=== PATIENT | female | born 1985 | race Asian ===

== ENCOUNTER → 2022-06-18 | Outpatient (CLI) | payer OTHER ==
[~2022-06-18] MED LIST: AMOX TR-K CLV1 EAC4 PO; CEFUROXIME500 MG PO; COLACE100 MG PO; CYANOCOBAL1000 MCG/1 INJ; IBU800 MG PO; NORCO 5-325 TA1 EACH PO; SPRINTEC 28 DA1 EACH PO; VITAMIN C1000 MG PO; VITAMIN D21250 MCG PO
[2022-06-18 14:24] LABS: HEMOGLOBIN 8.9 gm/dl (12.3-15.3); RED BLOOD COUNT 4.25 M/UL (4.00-5.10); WHITE BLOOD COUNT 19.2 K/UL (4.5-11.0)
[2022-06-18 14:50] LABS: BUN/CREATININE RATIO 9 (0-10)
== END ==
LOC: LAB 13:42
PROVIDERS: Nurse Practitioner Family
DX: R50.9 Fever, unspecified (principal)
CPT/HCPCS: 36415; 80053; 85025; 87040

== ENCOUNTER → 2022-06-18 | Outpatient (CLI) | payer OTHER | LOC: EXRD 12:56 | DX: R50.9 Fever, unspecified (principal) | CPT/HCPCS: 71046 ==

== ENCOUNTER 2022-06-19 12:35 | Inpatient (IN) | payer OTHER ==
[~2022-06-19] VITALS: Ht 170.2 cm; Wt 93.0 kg
[~2022-06-19 12:35] MED LIST changes: -CEFUROXIME500 MG PO; -CYANOCOBAL1000 MCG/1 INJ; -VITAMIN C1000 MG PO; -VITAMIN D21250 MCG PO
[2022-06-19 13:56] LABS: HEMOGLOBIN 8.9 gm/dl (12.3-15.3); RED BLOOD COUNT 4.26 M/UL (4.00-5.10); WHITE BLOOD COUNT 15.8 K/UL (4.5-11.0)
[2022-06-19 14:17] LABS: BUN/CREATININE RATIO 9 (0-10)
[2022-06-19 15:05] LABS: BORDETELLA PARAPERTUSSIS Not Detected (Not Detectd); BORDETELLA PERTUSSIS Not Detected (Not Detectd); CHLAMYDIA PNEUMONIAE Not Detected (Not Detectd); CORONAVIRUS HKU1 Not Detected (Not Detectd); CORONAVIRUS NL63 Not Detected (Not Detectd); CORONAVIRUS OC43 Not Detected (Not Detectd); CORONOAVIRUS 229E Not Detected (Not Detectd); HUMAN METAPNEUMOVIRUS Not Detected (Not Detectd); HUMAN RHINOVIRUS/ENTEROVIRUS Not Detected (Not Detectd); INFLUENZA A Not Detected (Not Detectd); INFLUENZA B Not Detected (Not Detectd); MYCOPLASMA PNEUMONIAE Not Detected (Not Detectd); PARAINFLUENZA VIRUS 1 Not Detected (Not Detectd); PARAINFLUENZA VIRUS 2 Not Detected (Not Detectd); PARAINFLUENZA VIRUS 3 Not Detected (Not Detectd); PARAINFLUENZA VIRUS 4 Not Detected (Not Detectd); RESPIRATORY SYNCYTIAL VIRUS Not Detected (Not Detectd)
[2022-06-19 17:04] LABS: SARS-CoV-2 NOT DETECTED (Not Detectd)
[2022-06-19] MEDS ORDERED: VITAMIN D21250 MCG PO (18:57)
[2022-06-19] MEDS ORDERED: VITAMIN C1000 MG PO (18:58)
[2022-06-19] MEDS ORDERED: CYANOCOBAL1000 MCG/1 INJ (18:58)
[2022-06-20 04:12] LABS: HEMOGLOBIN 8.4 gm/dl (12.3-15.3); RED BLOOD COUNT 4.05 M/UL (4.00-5.10); WHITE BLOOD COUNT 12.8 K/UL (4.5-11.0)
[2022-06-20 04:53] LABS: BUN/CREATININE RATIO 7 (0-10)
[2022-06-21 08:16] LABS: HEMOGLOBIN 8.9 gm/dl (12.3-15.3); RED BLOOD COUNT 4.34 M/UL (4.00-5.10); WHITE BLOOD COUNT 7.3 K/UL (4.5-11.0)
[2022-06-21 09:04] LABS: BUN/CREATININE RATIO 9 (0-10)
[2022-06-21] MEDS ORDERED: CEFUROXIME500 MG PO (11:01)
== END 2022-06-21 11:57 | disposition home or self-care (01) | DRG 872 ==
LOC: ER1 12:35 → M/S 17:34 → CDU 17:34 → M/S 22:43
PROVIDERS: Internal Medicine; Physician Assistant; ADMIT Internal Medicine
DX: A41.9 Sepsis, unspecified organism (principal); N10 Acute pyelonephritis; N30.00 Acute cystitis without hematuria; Z20.822 Contact with and (suspected) exposure to COVID-19; E86.0 Dehydration; D50.9 Iron deficiency anemia, unspecified; E55.9 Vitamin D deficiency, unspecified; E53.8 Deficiency of other specified B group vitamins; N28.1 Cyst of kidney, acquired
CPT/HCPCS: 71045; 80048; 80053; 81001; 82550; 82553; 83605; 83735; 84484; 84703; 85025; 87040; 87086; 87633; 93005; 96374; 96375; 99285; J0692; J0696; J2405; Q9967